=== PATIENT | female | born 1940 | race Caucasian/White ===

== ENCOUNTER → 2020-07-30 | Outpatient (CLI) | payer MEDICARE, BC ==
[~2020-07-30] MED LIST: ADULT ASPIRIN81 MG PO; ASPIRIN81 M1 PO; CALCIUM + D3 E1 EACH PO; CALCIUM 600600 M2 PO; CALCIUM PLUS VIT D; CO Q; COZAAR25 M1 PO; CRESTOR10 M1 PO; DELTASONE20 MG PO; DIOVAN; EVISTA60 MG PO; FISH OIL1 IU PO; GINKO BILOBA60 MG PO; LEVOTHROID0.05 MG PO; LIVALO2 MG PO; MOTRIN 800 MG E4 TAB PO; NITROSTAT0.3 M1 SL; NORVASC5 MG PO; ORACEA40 MG PO; PERCOCET 325 MG1 TA5 PO; PRAVASTATIN SOD20 MG PO; PRESERVISION1 SGL PO; PREVAGEN PO; PROLIA60 MG/M1 SC; VALSARTAN HCTZ PO; VASOTEC10 MG; VASOTEC10 MG PO; ZANTAC 150150 MG PO; ZITHROMAX500 MG PO
--- NOTE | 2020-07-30 09:45 | NUR ---
INFORMED CONSENT OBTAINED FOR LEXISCAN NUCLEAR STRESS TEST WITH DR. FISH. RESTING EKG NSR WITH OCCASIONAL PVC'S WITH A RESTING HR OF 77 WITH BP OF 124/62. LUNGS CLEAR WITH SPO2 OF 96% ON ROOM AIR. PT COMPLETED A 1:00 LEXISCAN PROTOCOL RECEIVING LEXISCAN 0.4 MG IV OVER 10 SECONDS. HAD NO CHEST PAIN OR ANY EKG CHANGES. DID C/O FEELING SHORT OF BREATH, WEAK AND WARM FEELING THAT SUBSIDED IN RECOVERY. HAD A PEAK HR OF 115 WITH BP OF 130/58. LAST RECOVERY HR OF 106 WITH BP OF 128/56. AWAITING SCANNING IN STABLE CONDITION
== END | disposition home or self-care (01) ==
LOC: CARD 01:08
PROVIDERS: ATTEND Family Medicine
DX: R07.2 Precordial pain (principal); R53.81 Other malaise

== ENCOUNTER → 2021-01-28 | Outpatient (CLI) | payer MEDICARE, BC | END | disposition home or self-care (01) | LOC: RAD 13:28 | PROVIDERS: ATTEND Orthopaedic Surgery | DX: M79.643 Pain in unspecified hand (principal) ==

== ENCOUNTER → 2022-08-25 | Outpatient (CLI) | payer MEDICARE, BC | END | disposition home or self-care (01) | LOC: RAD 10:19 | PROVIDERS: ATTEND Chiropractor | DX: M41.84 Other forms of scoliosis, thoracic region (principal); M48.04 Spinal stenosis, thoracic region; R07.89 Other chest pain ==

== ENCOUNTER → 2023-06-21 | Outpatient (CLI) | payer MEDICARE, BC ==
[2023-06-21 08:39] LABS: BASO % 0.5 % (0.0-1.0); EOS # 0.1 10*3/uL (0.0-0.4); EOS % 1.6 % (1.0-4.0); HEMATOCRIT 42.6 % (37.0-47.0); LYMPH # 1.1 10*3/uL (1.3-4.4); LYMPH % 29.6 % (27.0-41.0); MEAN CELL VOLUME 92.4 fl (81.0-99.0); MEAN CORPUSCULAR HGB 31.2 pg (27.0-31.0); MEAN CORPUSCULAR HGB CONC 33.8 g/dl (33.0-37.0); MEAN PLATELET VOLUME 8.3 fl (9.6-12.3); MONO # 0.5 10*3/uL (0.1-1.0); NEUT # 2.2 10*3/uL (2.3-7.9); NEUT % 56.3 % (47.0-73.0); PLATELET COUNT AUTOMATED 295 10*3/uL (130-400); RED BLOOD COUNT 4.61 10*6/uL (4.10-5.10); RED CELL DISTRI WIDTH 12.1 % (0-14.5); WHITE BLOOD COUNT 3.8 10*3/uL (4.8-10.8)
[2023-06-21 08:57] LABS: ACT PARTIAL THROMBO TIME 28.8 SECONDS (20.0-32.1)
[2023-06-21 09:26] LABS: ALKALINE PHOSPHATASE 62 U/L (46-116); BUN 8 mg/dl (9-23); CHLORIDE 104 mmol/L (98-107); POTASSIUM 4.4 mmol/L (3.4-5.1); SGPT/ALT 15 U/L (10-49); TOTAL PROTEIN 7.1 gm/dL (6.0-8.0)
== END | disposition home or self-care (01) ==
LOC: LAB 08:19
PROVIDERS: Student in an Organized Health Care Education/Training Program; ATTEND Family Medicine
DX: T14.8XXA Other injury of unspecified body region, initial encounter (principal); R53.83 Other fatigue; X58.XXXA Exposure to other specified factors, initial encounter

== ENCOUNTER 2024-03-23 08:47 | Emergency (ER) | payer MEDICARE, BC ==
[~2024-03-23] VITALS: Ht 149.8 cm; Wt 52.2 kg
[2024-03-23] MEDS ORDERED: ACETAMINOPHEN 325 MG TAB PO ONE (09:05)
[2024-03-23] MEDS ORDERED: MELOXICAM15 MG PO (10:57)
== END 2024-03-23 11:14 | disposition home or self-care (01) ==
LOC: ED 08:47
DX: R51.9 Headache, unspecified (principal); M54.2 Cervicalgia; K21.9 Gastro-esophageal reflux disease without esophagitis; I10 Essential (primary) hypertension; E78.00 Pure hypercholesterolemia, unspecified; Z90.710 Acquired absence of both cervix and uterus; Z98.890 Other specified postprocedural states; W19.XXXA Unspecified fall, initial encounter

== ENCOUNTER → 2024-05-28 | Outpatient (CLI) | payer MEDICARE, BC ==
[~2024-05-28] MED LIST changes: +MELOXICAM15 MG PO
== END | disposition home or self-care (01) ==
LOC: LAB 13:44
PROVIDERS: ATTEND Nurse Practitioner Family
DX: N94.89 Other specified conditions associated with female genital organs and menstrual cycle (principal)

== ENCOUNTER → 2024-06-07 | Outpatient (CLI) | payer MEDICARE, BC ==
[2024-06-07 18:25] LABS: BILIRUBIN Negative (Negative); BLOOD Negative (Negative); CLARITY Clear (Clear); COLOR Yellow (Yellow); GLUCOSE Negative (Negative); KETONE Negative (Negative); LEUKO ESTERASE Negative (Negative); NITRITE Negative (Negative); SPECIFIC GRAVITY <= 1.005 (1.001-1.030); UROBILINOGEN 0.2 E.U./dl (0.0-1.0)
[2024-06-07 18:32] LABS: WBC 0-2 wbc/hpf (0-5)
== END | disposition home or self-care (01) ==
LOC: LAB 10:34
PROVIDERS: ATTEND Nurse Practitioner Family
DX: R30.0 Dysuria (principal)

== ENCOUNTER → 2024-06-14 | Outpatient (CLI) | payer MEDICARE, BC | END | disposition home or self-care (01) | LOC: US 12:44 | PROVIDERS: ATTEND Obstetrics & Gynecology | DX: R10.2 Pelvic and perineal pain (principal); Z90.710 Acquired absence of both cervix and uterus ==

== ENCOUNTER → 2024-11-23 | Outpatient (CLI) | payer MEDICARE, BC | END | disposition home or self-care (01) | LOC: RAD 10:21 | PROVIDERS: ATTEND Family Medicine | DX: M47.817 Spondylosis without myelopathy or radiculopathy, lumbosacral region (principal); M43.16 Spondylolisthesis, lumbar region; M48.07 Spinal stenosis, lumbosacral region; M25.78 Osteophyte, vertebrae; M54.50 Low back pain, unspecified ==

== ENCOUNTER → 2024-12-28 | Outpatient (CLI) | payer MEDICARE, BC | END | disposition home or self-care (01) | LOC: RAD 08:50 | PROVIDERS: ATTEND Family Medicine | DX: Z13.820 Encounter for screening for osteoporosis (principal); M81.0 Age-related osteoporosis without current pathological fracture ==

== ENCOUNTER → 2025-07-15 | Outpatient (CLI) | payer MEDICARE, BC | END | disposition home or self-care (01) | LOC: RAD 10:39 | PROVIDERS: ATTEND Family Medicine | DX: R05.1 Acute cough (principal) ==

== ENCOUNTER 2025-10-23 14:28 | Emergency (ER) | payer MEDICARE, BC ==
[~2025-10-23] VITALS: Ht 132 cm; Wt 50.8 kg
[2025-10-23] MEDS ORDERED: CLINDAMYCIN HC300 MG PO (16:07)
== END 2025-10-23 16:14 | disposition home or self-care (01) ==
LOC: ED 14:28
DX: L03.012 Cellulitis of left finger (principal); Z88.1 Allergy status to other antibiotic agents; Z79.82 Long term (current) use of aspirin; Z79.899 Other long term (current) drug therapy; Z90.710 Acquired absence of both cervix and uterus

== ENCOUNTER 2025-11-24 09:28 | Inpatient (IN) | payer MEDICARE, BC ==
[~2025-11-24] VITALS: Ht 149.8 cm; Wt 48.1 kg
[~2025-11-24 09:28] MED LIST changes: +CLINDAMYCIN HC300 MG PO
[2025-11-24 09:43] VITALS: BP 174/88
[2025-11-24] MEDS ORDERED: Dicyclomine Hydrochloride 20 MG/2 ML VIAL IM ONE (09:55)
[2025-11-24] MEDS ORDERED: SODIUM CHLORIDE 0.9% 500 ML IV ONE (09:55)
[2025-11-24] MEDS ORDERED: ALENDRONATE SOD70 M1 PO (09:57)
[2025-11-24] MEDS ORDERED: HEARTBURN RELIE20 MG PO (09:58)
[2025-11-24] MEDS ORDERED: IOHEXOL 300 MG/ML 100 ML VIAL IV ONE (10:00)
[2025-11-24 10:11] LABS: BASO # 0.0 10*3/uL (0.0-0.1); BASO % 0.2 % (0.0-1.0); EOS # 0.0 10*3/uL (0.0-0.4); EOS % 0.1 % (1.0-4.0); MEAN CELL VOLUME 89.7 fl (81.0-99.0); MEAN CORPUSCULAR HGB 29.7 pg (27.0-31.0); MEAN PLATELET VOLUME 8.5 fl (9.6-12.3); MONO # 0.8 10*3/uL (0.1-1.0); MONO % 7.5 % (3.0-9.0); NEUT # 9.5 10*3/uL (2.3-7.9); NEUT % 86.2 % (47.0-73.0); NUCLEATED RED BLOOD CELL 0.0 % (0.0-0.0); NUCLEATED RED BLOOD CELL 0.0 10*3/uL (0.0-0.0); PLATELET COUNT AUTOMATED 261 10*3/uL (130-400); RED CELL DISTRI WIDTH 12.5 % (0-14.5)
[2025-11-24 10:22] LABS: BILIRUBIN Negative (Negative); BLOOD Negative (Negative); CLARITY Clear (Clear); COLOR Yellow (Yellow); KETONE Negative (Negative); LEUKO ESTERASE Negative (Negative); NITRITE Negative (Negative); PH 7.0 (4.5-8.0); SPECIFIC GRAVITY <= 1.005 (1.001-1.030); UROBILINOGEN 0.2 E.U./dl (0.0-1.0)
[2025-11-24 10:28] LABS: BUN 6 mg/dl (9-23); SGPT/ALT 13 U/L (5-49)
[2025-11-24 10:45] LABS: BACTERIA 1+
[2025-11-24] MEDS ORDERED: ACETAMINOPHEN 650 MG SUPP R PRN (13:35)
[2025-11-24] MEDS ORDERED: SODIUM CHLORIDE 0.9% 1,000 ML IV ONE (13:35)
[2025-11-24] MEDS ORDERED: Ondansetron Hydrochloride 4 MG/2 ML VIAL IV PRN (13:35)
[2025-11-24] MEDS ORDERED: ACETAMINOPHEN 325 MG TAB PO PRN (13:35)
[2025-11-24] MEDS ORDERED: Acetaminophen/Hydrocodone 5 MG/325 MG TABLET PO PRN (13:35)
[2025-11-24 16:15] VITALS: BP 149/60; BP 1494/66
[2025-11-24] MEDS ORDERED: VANCOMYCIN HCL 125 MG CAPSULE PO SCH (18:00)
[2025-11-24 20:00] VITALS: BP 137/82
[2025-11-25] VITALS: BP 131/51
[2025-11-25 06:14] LABS: BUN 5 mg/dl (9-23); FREE T4 0.97 ng/dl (0.89-1.76)
[2025-11-25 06:33] LABS: MEAN CELL VOLUME 87.6 fl (81.0-99.0); MEAN CORPUSCULAR HGB 29.5 pg (27.0-31.0); MEAN PLATELET VOLUME 9.0 fl (9.6-12.3); NUCLEATED RED BLOOD CELL 0.0 % (0.0-0.0); NUCLEATED RED BLOOD CELL 0.0 10*3/uL (0.0-0.0); PLATELET COUNT AUTOMATED 272 10*3/uL (130-400); RED CELL DISTRI WIDTH 12.9 % (0-14.5)
[2025-11-25 06:37] LABS: MANUAL DIFF REFLEX YES
[2025-11-25 07:28] LABS: PLATELET SUFFICIENCY NORMAL (NORMAL)
[2025-11-25 08:00] VITALS: BP 128/59
[2025-11-25] MEDS ORDERED: POTASSIUM CHLORIDE 20 MEQ TAB PO ONE (11:10)
[2025-11-25] MEDS ORDERED: FAMOTIDINE 20 MG TAB PO SCH (11:14)
[2025-11-25] MEDS ORDERED: ASPIRIN ENTERIC COATED 81 MG TAB PO SCH (11:14)
[2025-11-25] MEDS ORDERED: ATORVASTATIN CALCIUM 10 MG TAB PO SCH (11:14)
[2025-11-25 12:00] VITALS: BP 125/69
[2025-11-25 16:00] VITALS: BP 129/52
[2025-11-25 20:00] VITALS: BP 125/65
[2025-11-26] VITALS: BP 134/63
[2025-11-26 06:59] LABS: BASO # 0.1 10*3/uL (0.0-0.1); BASO % 0.5 % (0.0-1.0); EOS # 0.2 10*3/uL (0.0-0.4); EOS % 2.2 % (1.0-4.0); MEAN CORPUSCULAR HGB 29.2 pg (27.0-31.0); MEAN PLATELET VOLUME 8.9 fl (9.6-12.3); MONO # 0.9 10*3/uL (0.1-1.0); MONO % 9.4 % (3.0-9.0); NEUT # 7.8 10*3/uL (2.3-7.9); NEUT % 79.4 % (47.0-73.0); NUCLEATED RED BLOOD CELL 0.0 % (0.0-0.0); NUCLEATED RED BLOOD CELL 0.0 10*3/uL (0.0-0.0); PLATELET COUNT AUTOMATED 285 10*3/uL (130-400); RED CELL DISTRI WIDTH 12.9 % (0-14.5)
[2025-11-26 07:04] LABS: BUN < 5 mg/dl (9-23)
[2025-11-26 07:28] LABS: MEAN CELL VOLUME 88.8 fl (81.0-99.0)
[2025-11-26 08:00] VITALS: BP 143/65
[2025-11-26 12:00] VITALS: BP 140/70
[2025-11-26] MEDS ORDERED: VANCOMYCIN HCL125 MG PO (14:14)
== END 2025-11-26 15:20 | disposition home or self-care (01) | DRG 872 ==
LOC: ED 09:28 → EDHOLD 12:15 → 5E 12:15
PROVIDERS: Student in an Organized Health Care Education/Training Program; ADMIT Internal Medicine; ATTEND Internal Medicine
DX: A41.89 Other specified sepsis (principal); A04.72 Enterocolitis due to Clostridium difficile, not specified as recurrent; K21.9 Gastro-esophageal reflux disease without esophagitis; I10 Essential (primary) hypertension; E78.00 Pure hypercholesterolemia, unspecified; R65.20 Severe sepsis without septic shock; R73.9 Hyperglycemia, unspecified; M81.0 Age-related osteoporosis without current pathological fracture; E55.9 Vitamin D deficiency, unspecified; Z88.8 Allergy status to other drugs, medicaments and biological substances; Z79.899 Other long term (current) drug therapy; Z79.01 Long term (current) use of anticoagulants; Z79.2 Long term (current) use of antibiotics; Z79.82 Long term (current) use of aspirin; Z90.710 Acquired absence of both cervix and uterus; Z98.42 Cataract extraction status, left eye; Z98.41 Cataract extraction status, right eye; Z81.8 Family history of other mental and behavioral disorders; Z82.49 Family history of ischemic heart disease and other diseases of the circulatory system; Z82.3 Family history of stroke